=== PATIENT | male | born 1995 | race Caucasian/White ===

== ENCOUNTER 2017-02-06 13:04 | Outpatient (RCR) | payer OTHER | END 2017-02-10 14:48 | disposition still patient (30) | LOC: WSOH 13:04 | DX: S60.222A Contusion of left hand, initial encounter (principal); R22.32 Localized swelling, mass and lump, left upper limb; R20.0 Anesthesia of skin; R20.2 Paresthesia of skin; W23.1XXA Caught, crushed, jammed, or pinched between stationary objects, initial encounter; Y99.0 Civilian activity done for income or pay ==